=== PATIENT | female | born 1950 | race African-American/Black ===

== ENCOUNTER 2020-02-29 04:19 | Emergency (ER) | payer OTHER ==
[~2020-02-29] VITALS: Ht 172.7 cm; Wt 89.8 kg
[2020-02-29 06:32] LABS: Basophils # (auto) 0 10 ^3/uL (0-0.2); Basophils % (auto) 0.4 % (0.0-2.0); Eosinophils # (auto) 0 10 ^3/uL (0-0.8); Eosinophils % (auto) 0.4 % (0.0-7.0); Hematocrit 36.2 % (36.0-46.0); Hemoglobin 12.5 g/dL (12.2-16.2); Lymphocytes # (auto) 1.2 10 ^3/uL (0.4-5.4); Lymphocytes % (auto) 39.1 % (10.0-50.0); Mean Corpuscular Hemoglobin 29.9 pg (28.0-32.0); Mean Corpuscular Hgb Conc. 34.6 g/dL (32.0-36.0); Mean Corpuscular Volume 86.2 fL (80.0-100.0); Monocytes # (auto) 0.3 10 ^3/uL (0-1.3); Monocytes % (auto) 10.4 % (0.0-12.0); Neutrophils # (auto) 1.6 10 ^3/uL (1.6-8.6); Neutrophils % (auto) 49.7 % (37.0-80.0); Platelet Count (auto) 168 10^3/uL (140-450); Red Cell Distribution Width 13.4 % (11.8-14.3); White Blood Cell 3.2 10^3/uL (4.4-10.8)
[2020-02-29 06:46] LABS: Albumin 3.9 g/dL (3.4-5.0); Calcium 8.6 mg/dL (8.5-10.1); Potassium 3.6 mmol/L (3.5-5.1)
[2020-02-29 06:48] LABS: Partial Thromboplastin Time 28.5 sec (23.0-31.2)
[2020-02-29 06:50] LABS: BUN/Creatinine Ratio 13.1; Bilirubin, Total 0.7 mg/dL (0.2-1.0); Total Protein 7.9 g/dL (6.4-8.2)
[2020-02-29 07:40] VITALS: BP 129/56
== END 2020-02-29 08:31 | disposition home or self-care (01) ==
LOC: ER 04:19
DX: U07.1 COVID-19 (principal); J40 Bronchitis, not specified as acute or chronic; I10 Essential (primary) hypertension
CPT/HCPCS: 36415; 71045; 80053; 85025; 85379; 85610; 85730; 87426; 93005

== ENCOUNTER 2020-03-01 09:29 | Outpatient (CLI) | payer OTHER ==
[2020-03-01] VITALS (7 sets, daily range): BP systolic 123–167; BP diastolic 63–93
[~2020-03-01] VITALS: Ht 172.7 cm; Wt 89.8 kg
[2020-03-01] MEDS ORDERED: BAMLANIVIMAB 700MG/200ML 200 ML IV ONE (10:00)
== END 2020-03-01 12:37 | disposition home or self-care (01) ==
LOC: ER 09:29
PROVIDERS: ATTEND Internal Medicine
DX: Z23 Encounter for immunization (principal); U07.1 COVID-19; R05 Cough; J42 Unspecified chronic bronchitis; I10 Essential (primary) hypertension
CPT/HCPCS: M0239; Q0239